=== PATIENT | female | born 1995 | race African-American/Black ===

== ENCOUNTER 2018-09-22 12:38 | Emergency (ER) | payer OTHER ==
[~2018-09-22] VITALS: Ht 157.5 cm; Wt 77.3 kg
[2018-09-22 12:39] VITALS: BP 129/87
[2018-09-22] MEDS ORDERED: IBUPROFEN 600 MG TABLET PO ONE (14:15)
== END 2018-09-22 14:42 | disposition home or self-care (01) ==
LOC: EMS 12:39
DX: N64.4 Mastodynia (principal); J45.909 Unspecified asthma, uncomplicated; F41.9 Anxiety disorder, unspecified